=== PATIENT | male | born 1975 | race Caucasian/White ===

== ENCOUNTER → 2021-02-21 | Outpatient (CLI) | payer OTHER ==
--- NOTE | 2021-02-21 17:02 | KCIC ---
EXAM: Left foot, 3 views. HISTORY: Pain. COMPARISON: None. FINDINGS: 3 views of the left foot are obtained. There is no acute fracture, dislocation or subluxati on. There is minimal degenerative spurring involving the first metatarsal phalangeal joint. There is no radiodense foreign body. IMPRESSION: No acute osseous finding. Minimal first metatarsal phalangeal joint osteoarthritis. Electronically signed by: Barbara Quick MD (02/21/2021 5:00 PM) [id number]
== END ==
LOC: KCIC 16:18
PROVIDERS: ATTEND Family Medicine
DX: M19.072 Primary osteoarthritis, left ankle and foot (principal)
CPT/HCPCS: 73630